=== PATIENT | male | born 1985 | race Caucasian/White ===

== ENCOUNTER 2016-09-25 22:31 | Emergency (ER) | payer SELFPAY ==
[~2016-09-25] VITALS: Ht 182.9 cm; Wt 59.1 kg
[~2016-09-25 22:31] MED LIST: ADDERALL XR30 MG PO; ATIVAN 1MG T1 MG/TAB PO; AURALGAN EAR DR15 ML OT; BACTRIM DS 8001 TAB PO; CARAFATE 1GM1 G PO; CATAPRES0.2 MG PO; CEPHALEXIN500 M1 PO; CHANTIX1 TAB PO; CIPRO 500MG TA500 MG PO; CLEOCIN HC150 MG/CAP PO; CLEOCIN HCL300 MG PO; CLINDAMYCIN150 MG PO; CLONAZEPAM1 MG PO; FLEXERIL 1010 MG/TAB PO; FLOMAX 0.40.4 MG/CAP PO; FLOMAX0.4 MG PO; IBU-8800 MG PO; KAPIDEX60 MG PO; KLONOPIN 1MG1 M1 PO; KLONOPIN 1MG1 MG PO; LIDODERM PATCH TP; LIORESAL 1010 MG/TAB PO; LORTAB 5/500 501 TAB PO; METFORMIN500 MG PO; MOTRIN 200200 MG/TAB PO; NAPROSYN500 MG PO; NORCO 325 MG-51 TAB PO; NORCO 325 MG-7.1 TAB PO; PAXIL30 M1 PO; PERCOCET 325 MG1 TA2 PO; PERCOCET 325 MG1 TAB PO; PHENERGAN 25 TA25 MG PO; PREDNISONE10 MG PO; PRILOSEC 20MG20 MG PO; PROTONIX 40MG T40 MG PO; RELAFEN 50500 MG/TAB PO; ROXICODONE 55 MG/TAB PO; SUBUTEX8 MG SL; TRAZODONE150 MG PO; TYLENOL EXTRA500 M1 PO; VALIUM 5MG T5 MG/TAB PO; VICODIN 5/5001 UDTAB PO; XANAX 0.5MG0.5 MG PO; XANAX0.5 MG PO; ZITHROMAX 250M250 MG; ZITHROMAX 250M250 MG PO; ZITHROMAX Z PA250 MG PO; ZOFRAN 4MG T4 MG/TAB PO; ZOFRAN4 M1 PO; ZOFRAN4 MG PO; ZOFRAN8 MG PO; ZYPREXA10 MG PO; [UNRECOGNIZED DRUG - OTHER]; lortab PO
[2016-09-25 22:34] VITALS: TEMP 97.4
[2016-09-25 23:08] LABS: BASO # 0.1 (0.0-0.2); BASO % 0.9 % (0.0-2.0); EOS # 0.1 (0.0-0.7); EOS % 1.8 % (0-4.0); GRAN # 3.9 (1.4-6.5); GRAN % 57.1 % (42.2-75.2); HEMATOCRIT 45.3 % (42.0-52.0); HEMOGLOBIN 15.6 g/dl (13.5-18.0); LYMPH # 2.2 (1.2-3.4); MEAN CELL VOLUME 94 fl (80.0-100.0); MEAN CORPUSCULAR HEMOGLOBIN 32 pg (27.0-31.0); MEAN CORPUSCULAR HGB CONC 34 g/dl (33.0-37.0); MEAN PLATELET VOLUME 9.6 fl (7.4-10.4); MONO # 0.6 (0.1-0.6); MONO % 8.1 % (1.7-9.3); PLATELET COUNT 302 K/mm3 (130-400); RED BLOOD COUNT 4.81 M/mm3 (4.20-5.60); REDCELL DISTRIBUTION WIDTH-CV 12.1 % (11.5-14.5); WHITE BLOOD COUNT 6.8 K/mm3 (4.8-10.8)
[2016-09-25 23:19] LABS: ADJUSTED CALCIUM 9.1 mg/dL (8.4-10.2); ALANINE AMINOTRANSFERASE 22 U/L (21-72); ALBUMIN 4.2 gm/dL (3.5-5.0); ALKALINE PHOSPHATASE 74 U/L (50-136); ANION GAP 12 mmol/L (7-16); BILIRUBIN,TOTAL 0.7 mg/dL (0.0-1.0); BLOOD UREA NITROGEN 5 mg/dL (9-20); CALCIUM 9.3 mg/dL (8.4-10.2); CARBON DIOXIDE 29 mmol/L (22-30); CHLORIDE 100 mmol/L (98-107); CREATININE, serum 0.74 mg/dL (0.66-1.25); GLUCOSE 93 mg/dL (74-106); LIPASE 91 U/L (23-300); POTASSIUM 3.7 mmol/L (3.4-5.0); SODIUM 142 mmol/L (137-145); TOTAL PROTEIN 7.2 gm/dL (6.4-8.2)
[2016-09-25 23:21] LABS: C-REACTIVE PROTEIN < 0.5 mg/dL (0.0-0.9)
[2016-09-25 23:31] LABS: PH 7 (5-8); SQUAMOUS EPITHELIAL None Seen /hpf; URINE APPEARANCE Cloudy; URINE BACTERIA None Seen /hpf; URINE BILIRUBIN Negative (NEGATIVE); URINE BLOOD Negative (NEGATIVE); URINE COLOR Yellow; URINE GLUCOSE Negative (NEGATIVE); URINE KETONE Negative (NEGATIVE); URINE UROBILINOGEN Negative (NEGATIVE); URINE WBC 0-2 /hpf
[2016-09-25 23:38] LABS: AMPHETAMINE URINE POSITIVE; BARBITURATES URINE NEGATIVE; BENZODIAZEPINES URINE POSITIVE; BUPRENORPHINE URINE NEGATIVE; METHADONE URINE NEGATIVE; OPIATES URINE NEGATIVE; OXYCODONE URINE NEGATIVE; PHENCYCLIDINE URINE NEGATIVE; PROPOXYPHENE URINE NEGATIVE; THC CANNABINOIDS URINE NEGATIVE
[2016-09-26] MEDS ORDERED: PHENERGAN 25 TA25 MG PO (00:29)
[2016-09-26] MEDS ORDERED: FLOMAX 0.40.4 MG/CAP PO (00:29)
[2016-09-26] MEDS ORDERED: NORCO 325 MG-51 TAB PO (00:29)
[2016-09-26 01:13] VITALS: BP 118/72; PULSE 80
== END 2016-09-26 01:15 | disposition home or self-care (01) ==
LOC: COL.ER 22:31
PROVIDERS: Physician Assistant
DX: N13.30 Unspecified hydronephrosis (principal); R31.9 Hematuria, unspecified; N20.0 Calculus of kidney
CPT/HCPCS: J1170; J1885; J2060; J2550; J7030

== ENCOUNTER 2016-10-11 04:18 | Emergency (ER) | payer SELFPAY ==
[~2016-10-11] VITALS: Ht 182.9 cm; Wt 65.9 kg
[2016-10-11 04:19] VITALS: BP 97/66; TEMP 97.7
[2016-10-11] MEDS ORDERED: MOTRIN 200200 MG/TAB PO (04:23)
[2016-10-11] MEDS ORDERED: NORCO 325 MG-51 TAB PO (05:19)
[2016-10-11] MEDS ORDERED: PHENERGAN 25 TA25 MG PO (05:19)
[2016-10-11 05:21] LABS: BASO % 0.7 % (0.0-2.0); EOS # 0.1 (0.0-0.7); EOS % 2.1 % (0-4.0); GRAN # 3.6 (1.4-6.5); HEMOGLOBIN 14.5 g/dl (13.5-18.0); LYMPH # 1.8 (1.2-3.4); LYMPH % 29.1 % (20.0-51.0); MEAN CELL VOLUME 94 fl (80.0-100.0); MEAN CORPUSCULAR HEMOGLOBIN 33 pg (27.0-31.0); MEAN CORPUSCULAR HGB CONC 35 g/dl (33.0-37.0); MEAN PLATELET VOLUME 9.3 fl (7.4-10.4); MONO # 0.5 (0.1-0.6); MONO % 8.9 % (1.7-9.3); PLATELET COUNT 278 K/mm3 (130-400); RED BLOOD COUNT 4.45 M/mm3 (4.20-5.60); REDCELL DISTRIBUTION WIDTH-CV 12.1 % (11.5-14.5); WHITE BLOOD COUNT 6.1 K/mm3 (4.8-10.8)
[2016-10-11 05:31] LABS: CALCIUM 8.8 mg/dL (8.4-10.2); CREATININE, serum 0.66 mg/dL (0.66-1.25); POTASSIUM 4.2 mmol/L (3.4-5.0)
[2016-10-11 05:31] LABS: PH 7 (5-8); SQUAMOUS EPITHELIAL 0-2 /hpf; URINE APPEARANCE Hazy; URINE BACTERIA Rare /hpf; URINE BILIRUBIN Negative (NEGATIVE); URINE BLOOD Negative (NEGATIVE); URINE COLOR Yellow; URINE GLUCOSE Negative (NEGATIVE); URINE KETONE Negative (NEGATIVE); URINE UROBILINOGEN Negative (NEGATIVE); URINE WBC 0-2 /hpf
[2016-10-11 05:49] VITALS: PULSE 90
[2016-10-12] MEDS ORDERED: FLOMAX 0.40.4 MG/CAP PO (23:53)
== END 2016-10-11 05:50 | disposition home or self-care (01) ==
LOC: COL.ER 04:18
PROVIDERS: Emergency Medicine
DX: R10.31 Right lower quadrant pain (principal); Z87.442 Personal history of urinary calculi
CPT/HCPCS: J1170; J1885; J2405; J7030

== ENCOUNTER 2016-10-12 23:11 | Emergency (ER) | payer SELFPAY ==
[~2016-10-12] VITALS: Ht 182.9 cm; Wt 65.9 kg
[2016-10-12 23:15] VITALS: BP 113/69; TEMP 97.8
[2016-10-12 23:44] LABS: PH 7 (5-8); SQUAMOUS EPITHELIAL None Seen /hpf; URINE APPEARANCE Clear; URINE BACTERIA None Seen /hpf; URINE BILIRUBIN Negative (NEGATIVE); URINE BLOOD Negative (NEGATIVE); URINE COLOR Yellow; URINE GLUCOSE Negative (NEGATIVE); URINE KETONE Negative (NEGATIVE); URINE RBC 0-2 /hpf; URINE UROBILINOGEN Negative (NEGATIVE); URINE WBC 0-2 /hpf
[2016-10-12] MEDS ORDERED: FLOMAX 0.40.4 MG/CAP PO (23:53)
[2016-10-13 00:18] VITALS: PULSE 78
== END 2016-10-13 00:19 | disposition home or self-care (01) ==
LOC: COL.ER 23:11
PROVIDERS: Nurse Practitioner
DX: R10.32 Left lower quadrant pain (principal); R10.31 Right lower quadrant pain; Z87.442 Personal history of urinary calculi
CPT/HCPCS: J1170; J1885; J2550

== ENCOUNTER → 2016-11-25 | Outpatient (CLI) | payer SELFPAY ==
[~2016-11-25] MED LIST changes: +ADDERALL30 MG PO; +ATIVAN 0.50.5 MG/TAB PO
== END ==
LOC: BHSO 09:35
DX: F90.0 Attention-deficit hyperactivity disorder, predominantly inattentive type (principal)

== ENCOUNTER 2016-11-27 20:36 | Emergency (ER) | payer SELFPAY ==
[~2016-11-27] VITALS: Ht 182.9 cm; Wt 68.2 kg
[~2016-11-27 20:36] MED LIST changes: -ADDERALL30 MG PO; -ATIVAN 0.50.5 MG/TAB PO
[2016-11-27 20:40] VITALS: TEMP 98.2
[2016-11-27] MEDS ORDERED: ZITHROMAX Z PA250 MG PO (22:50)
[2016-11-27 23:14] VITALS: BP 104/7; PULSE 88
== END 2016-11-27 23:15 | disposition home or self-care (01) ==
LOC: COL.ER 20:36
DX: J20.9 Acute bronchitis, unspecified (principal); F41.9 Anxiety disorder, unspecified; F17.210 Nicotine dependence, cigarettes, uncomplicated; R59.0 Localized enlarged lymph nodes
CPT/HCPCS: J1100; J7030

== ENCOUNTER 2016-12-14 23:15 | Emergency (ER) | payer SELFPAY ==
[~2016-12-14] VITALS: Ht 182.9 cm; Wt 68.2 kg
[2016-12-14 23:22] VITALS: BP 118/64; TEMP 99.1
[2016-12-15 00:20] LABS: BASO # 0.1 (0.0-0.2); BASO % 0.7 % (0.0-2.0); EOS # 0.2 (0.0-0.7); EOS % 1.4 % (0-4.0); GRAN # 8.9 (1.4-6.5); GRAN % 75.7 % (42.2-75.2); HEMATOCRIT 42.5 % (42.0-52.0); HEMOGLOBIN 14.7 g/dl (13.5-18.0); LYMPH # 1.7 (1.2-3.4); LYMPH % 14.8 % (20.0-51.0); MEAN CELL VOLUME 93 fl (80.0-100.0); MEAN CORPUSCULAR HEMOGLOBIN 32 pg (27.0-31.0); MEAN CORPUSCULAR HGB CONC 35 g/dl (33.0-37.0); MEAN PLATELET VOLUME 8.9 fl (7.4-10.4); MONO # 0.8 (0.1-0.6); MONO % 6.9 % (1.7-9.3); PLATELET COUNT 483 K/mm3 (130-400); RED BLOOD COUNT 4.58 M/mm3 (4.20-5.60); REDCELL DISTRIBUTION WIDTH-CV 12.4 % (11.5-14.5); WHITE BLOOD COUNT 11.8 K/mm3 (4.8-10.8)
[2016-12-15 00:36] LABS: ADJUSTED CALCIUM 9.2 mg/dL (8.4-10.2); ALBUMIN 4.2 gm/dL (3.5-5.0); BILIRUBIN,TOTAL 0.5 mg/dL (0.0-1.0); CALCIUM 9.4 mg/dL (8.4-10.2); CREATININE, serum 0.83 mg/dL (0.66-1.25); POTASSIUM 3.7 mmol/L (3.4-5.0); TOTAL PROTEIN 7.4 gm/dL (6.4-8.2)
[2016-12-15 01:17] LABS: PH 8 (5-8); URINE APPEARANCE Cloudy; URINE BILIRUBIN Negative (NEGATIVE); URINE BLOOD Negative (NEGATIVE); URINE COLOR Yellow; URINE GLUCOSE Negative (NEGATIVE); URINE KETONE Negative (NEGATIVE); URINE UROBILINOGEN Negative (NEGATIVE)
[2016-12-15 01:23] LABS: SQUAMOUS EPITHELIAL 0-2 /hpf; URINE RBC 0-2 /hpf; URINE WBC 0-2 /hpf
[2016-12-15 03:05] VITALS: PULSE 85
== END 2016-12-15 03:07 | disposition home or self-care (01) ==
LOC: COL.ER 23:15
PROVIDERS: Emergency Medicine
DX: R10.31 Right lower quadrant pain (principal); R11.2 Nausea with vomiting, unspecified; Z87.442 Personal history of urinary calculi
CPT/HCPCS: J1885; J2405; J3010; J7030; Q9967

== ENCOUNTER 2017-01-18 13:10 | Emergency (ER) | payer SELFPAY ==
[~2017-01-18] VITALS: Ht 182.9 cm; Wt 68.2 kg
[2017-01-18 13:12] VITALS: BP 111/70; TEMP 98
[2017-01-18] MEDS ORDERED: ADDERALL30 MG PO (13:14)
[2017-01-18] MEDS ORDERED: KLONOPIN 1MG1 MG PO (13:31)
[2017-01-18 13:37] VITALS: PULSE 86
== END 2017-01-18 13:38 | disposition home or self-care (01) ==
LOC: COL.ER 13:10
DX: Z76.0 Encounter for issue of repeat prescription (principal); F41.9 Anxiety disorder, unspecified

== ENCOUNTER → 2017-02-03 | Outpatient (REF) ==
[~2017-02-03] MED LIST changes: +ADDERALL30 MG PO; +ATIVAN 0.50.5 MG/TAB PO
== END ==
LOC: ZLAB.WCH 08:53
DX: Z01.89 Encounter for other specified special examinations (principal)

== ENCOUNTER 2017-02-04 22:05 | Emergency (ER) | payer SELFPAY ==
[~2017-02-04] VITALS: Ht 182.9 cm; Wt 68.2 kg
[~2017-02-04 22:05] MED LIST changes: -ATIVAN 0.50.5 MG/TAB PO
[2017-02-04 22:07] VITALS: BP 112/67; TEMP 98.1
[2017-02-04] MEDS ORDERED: ATIVAN 0.50.5 MG/TAB PO (22:11)
[2017-02-04 23:02] VITALS: PULSE 100
== END 2017-02-04 22:59 | disposition home or self-care (01) ==
LOC: COL.ER 22:05
DX: G89.29 Other chronic pain (principal); F32.9 Major depressive disorder, single episode, unspecified; F43.10 Post-traumatic stress disorder, unspecified; F17.210 Nicotine dependence, cigarettes, uncomplicated; Z71.1 Person with feared health complaint in whom no diagnosis is made

== ENCOUNTER 2017-06-19 23:21 | Emergency (ER) | payer SELFPAY ==
[~2017-06-19] VITALS: Ht 182.9 cm; Wt 72.7 kg
[~2017-06-19 23:21] MED LIST changes: +ATIVAN 0.50.5 MG/TAB PO
[2017-06-19 23:26] VITALS: BP 111/75; PULSE 86; TEMP 97.8
[2017-06-19] MEDS ORDERED: ATARAX 25MG25 MG/TAB PO (23:54)
== END 2017-06-20 00:15 | disposition home or self-care (01) ==
LOC: COL.ER 23:21
DX: Z76.0 Encounter for issue of repeat prescription (principal); F41.9 Anxiety disorder, unspecified; F17.210 Nicotine dependence, cigarettes, uncomplicated

== ENCOUNTER → 2017-07-01 | Outpatient (CLI) | payer SELFPAY ==
[~2017-07-01] MED LIST changes: +ATARAX 25MG25 MG/TAB PO
== END ==
LOC: BHSO 13:26
DX: F41.1 Generalized anxiety disorder (principal)

== ENCOUNTER → 2018-01-01 | Outpatient (CLI) | payer SELFPAY | LOC: BHSO 09:20 | DX: F90.0 Attention-deficit hyperactivity disorder, predominantly inattentive type (principal) | CPT/HCPCS: G0463 ==

== ENCOUNTER → 2018-03-21 | Emergency (ER) | payer SELFPAY ==
[~2018-03-21] VITALS: Ht 185.4 cm; Wt 68.2 kg
[2018-03-21 18:57] VITALS: BP 116/72; TEMP 98
[2018-03-21 19:55] VITALS: PULSE 87
== END ==
LOC: COL.ER 18:54
DX: K02.9 Dental caries, unspecified (principal); K04.7 Periapical abscess without sinus; F41.9 Anxiety disorder, unspecified; F17.210 Nicotine dependence, cigarettes, uncomplicated

== ENCOUNTER → 2018-07-28 | Outpatient (CLI) | payer SELFPAY | LOC: BHSO 09:41 | DX: F41.1 Generalized anxiety disorder (principal) | CPT/HCPCS: G0463 ==

== ENCOUNTER 2019-02-11 23:27 | Emergency (ER) | payer MEDICAID ==
[~2019-02-11] VITALS: Ht 182.9 cm; Wt 68.2 kg
[2019-02-11 23:34] VITALS: TEMP 97
[2019-02-11] MEDS ORDERED: FLOMAX 0.40.4 MG/CAP PO (23:53)
[2019-02-12 00:10] LABS: BASO # 0.1 (0.0-0.2); BASO % 1.2 % (0.0-2.0); EOS # 0.2 (0.0-0.7); EOS % 4.9 % (0-4.0); GRAN # 2.4 (1.4-6.5); GRAN % 57.8 % (42.2-75.2); HEMATOCRIT 44.1 % (42.0-52.0); HEMOGLOBIN 15.1 g/dl (13.5-18.0); LYMPH % 25.2 % (20.0-51.0); MEAN CELL VOLUME 94 fl (80.0-100.0); MEAN CORPUSCULAR HEMOGLOBIN 32 pg (27.0-31.0); MEAN CORPUSCULAR HGB CONC 34 g/dl (33.0-37.0); MEAN PLATELET VOLUME 9.2 fl (7.4-10.4); MONO # 0.4 (0.1-0.6); MONO % 10.7 % (1.7-9.3); PLATELET COUNT 272 K/mm3 (130-400); REDCELL DISTRIBUTION WIDTH-CV 11.8 % (11.5-14.5)
[2019-02-12 00:16] LABS: CALCIUM 9.1 mg/dL (8.4-10.2); CREATININE, serum 0.67 (0.66-1.25); POTASSIUM 4.3 mmol/L (3.4-5.0)
[2019-02-12 01:09] LABS: COLLECTION METHOD CLEAN CATCH
[2019-02-12 01:14] LABS: PH 9 (5-8); SQUAMOUS EPITHELIAL None Seen /hpf; URINE APPEARANCE Clear; URINE BACTERIA None Seen /hpf; URINE BILIRUBIN Negative (NEGATIVE); URINE BLOOD Negative (NEGATIVE); URINE COLOR Straw; URINE GLUCOSE Negative (NEGATIVE); URINE KETONE Negative (NEGATIVE); URINE LEUKOCYTE ESTERASE Negative (NEGATIVE); URINE NITRATE Negative (NEGATIVE); URINE PROTEIN(semi-quant) Negative (NEGATIVE); URINE RBC 0-2 /hpf; URINE UROBILINOGEN Negative (NEGATIVE)
[2019-02-12] MEDS ORDERED: PERCOCET 325 MG1 TA2 PO (01:39)
[2019-02-12] MEDS ORDERED: ZOFRAN 4MG T4 MG/TAB PO (01:39)
[2019-02-12] MEDS ORDERED: PHENERGAN12.5 MG/SU RC (01:41)
[2019-02-12 02:05] VITALS: BP 144/85; PULSE 80
== END 2019-02-12 02:05 | disposition home or self-care (01) ==
LOC: COL.ER 23:27
PROVIDERS: Emergency Medicine
DX: N20.2 Calculus of kidney with calculus of ureter (principal); F90.9 Attention-deficit hyperactivity disorder, unspecified type; F20.9 Schizophrenia, unspecified; F17.210 Nicotine dependence, cigarettes, uncomplicated; Z87.442 Personal history of urinary calculi
CPT/HCPCS: J1885; J2270; J2405; J7030

== ENCOUNTER → 2019-02-18 | Outpatient (CLI) | payer MEDICAID ==
[~2019-02-18] MED LIST changes: +PHENERGAN12.5 MG/SU RC
== END ==
LOC: BHSO 11:23
DX: F90.0 Attention-deficit hyperactivity disorder, predominantly inattentive type (principal)
CPT/HCPCS: G0463

== ENCOUNTER 2019-05-14 10:22 | Emergency (ER) | payer MEDICAID ==
[~2019-05-14] VITALS: Ht 182.9 cm; Wt 65.9 kg
[2019-05-14 10:40] VITALS: TEMP 97.3
[2019-05-14 11:56] LABS: BASO # 0.1 (0.0-0.2); BASO % 0.9 % (0.0-2.0); EOS # 0.3 (0.0-0.7); GRAN % 60.1 % (42.2-75.2); HEMATOCRIT 42.3 % (42.0-52.0); HEMOGLOBIN 14.6 g/dl (13.5-18.0); LYMPH # 1.7 (1.2-3.4); LYMPH % 24.6 % (20.0-51.0); MEAN CELL VOLUME 93 fl (80.0-100.0); MEAN CORPUSCULAR HEMOGLOBIN 32 pg (27.0-31.0); MEAN CORPUSCULAR HGB CONC 35 g/dl (33.0-37.0); MEAN PLATELET VOLUME 9.6 fl (7.4-10.4); MONO # 0.7 (0.1-0.6); MONO % 10.3 % (1.7-9.3); PLATELET COUNT 289 K/mm3 (130-400); RED BLOOD COUNT 4.53 M/mm3 (4.20-5.60); REDCELL DISTRIBUTION WIDTH-CV 12.1 % (11.5-14.5)
[2019-05-14 12:08] LABS: ALANINE AMINOTRANSFERASE 23 U/L (21-72); ALBUMIN 4.2 gm/dL (3.5-5.0); ALKALINE PHOSPHATASE 67 U/L (50-136); ANION GAP 7 mmol/L (7-16); AST,SGOT 41 U/L (15-37); BILIRUBIN,TOTAL 0.3 mg/dL (0.0-1.0); BLOOD UREA NITROGEN 16 mg/dL (9-20); C-REACTIVE PROTEIN < 0.5 mg/dL (0.0-0.9); CALCIUM 9.2 mg/dL (8.4-10.2); CARBON DIOXIDE 31 mmol/L (22-30); CHLORIDE 102 mmol/L (98-107); CREATININE, serum 0.91 (0.66-1.25); GLUCOSE 101 mg/dL (74-106); LIPASE 79 U/L (23-300); POTASSIUM 3.6 mmol/L (3.4-5.0); SODIUM 140 mmol/L (137-145); TOTAL PROTEIN 6.8 gm/dL (6.4-8.2)
[2019-05-14] MEDS ORDERED: NORCO 325 MG-51 TAB PO (14:07)
[2019-05-14 14:23] VITALS: BP 122/79; PULSE 72
== END 2019-05-14 14:24 | disposition home or self-care (01) ==
LOC: COL.ER 10:22
PROVIDERS: Family Medicine
DX: N13.2 Hydronephrosis with renal and ureteral calculous obstruction (principal); Z87.442 Personal history of urinary calculi
CPT/HCPCS: J1170; J1885; J2405; J7030; Q9967

== ENCOUNTER 2019-12-04 13:04 | Emergency (ER) | payer MEDICAID ==
[~2019-12-04] VITALS: Ht 182.9 cm; Wt 68.2 kg
[2019-12-04 13:24] VITALS: TEMP 98
[2019-12-04 13:38] LABS: COLLECTION METHOD CLEAN CATCH
[2019-12-04 13:43] LABS: BASO # 0.1 (0.0-0.2); BASO % 1.3 % (0.0-2.0); EOS # 0.3 (0.0-0.7); EOS % 4.8 % (0-4.0); GRAN # 2.6 (1.4-6.5); GRAN % 48.3 % (42.2-75.2); HEMATOCRIT 45.4 % (42.0-52.0); HEMOGLOBIN 15.4 g/dl (13.5-18.0); LYMPH # 1.9 (1.2-3.4); LYMPH % 34.8 % (20.0-51.0); MEAN CELL VOLUME 94 fl (80.0-100.0); MEAN CORPUSCULAR HEMOGLOBIN 32 pg (27.0-31.0); MEAN CORPUSCULAR HGB CONC 34 g/dl (33.0-37.0); MONO # 0.6 (0.1-0.6); MONO % 10.4 % (1.7-9.3); PLATELET COUNT 288 K/mm3 (130-400); RED BLOOD COUNT 4.82 M/mm3 (4.20-5.60); REDCELL DISTRIBUTION WIDTH-CV 12.4 % (11.5-14.5)
[2019-12-04 13:56] LABS: ALANINE AMINOTRANSFERASE 26 U/L (4-49); ALBUMIN 4.1 gm/dL (3.5-5.0); ALKALINE PHOSPHATASE 75 U/L (50-136); ANION GAP 6 mmol/L (7-16); AST,SGOT 26 U/L (15-37); BILIRUBIN,TOTAL 0.3 mg/dL (0.0-1.0); BLOOD UREA NITROGEN 6 mg/dL (9-20); CARBON DIOXIDE 32 mmol/L (22-30); CHLORIDE 101 mmol/L (98-107); CREATININE, serum 0.63 (0.66-1.25); GLUCOSE 82 mg/dL (74-106); LIPASE 52 U/L (23-300); POTASSIUM 3.9 mmol/L (3.4-5.0); SODIUM 138 mmol/L (137-145); TOTAL PROTEIN 7.1 gm/dL (6.4-8.2)
[2019-12-04 13:58] LABS: C-REACTIVE PROTEIN < 0.5 mg/dL (0.0-0.9)
[2019-12-04 14:08] LABS: PH 6 (5-8); SQUAMOUS EPITHELIAL None Seen /hpf; URINE APPEARANCE Clear; URINE BACTERIA None Seen /hpf; URINE BILIRUBIN Negative (NEGATIVE); URINE BLOOD 1+ (NEGATIVE); URINE COLOR Yellow; URINE GLUCOSE Negative (NEGATIVE); URINE KETONE Negative (NEGATIVE); URINE LEUKOCYTE ESTERASE Negative (NEGATIVE); URINE NITRATE Negative (NEGATIVE); URINE PROTEIN(semi-quant) Negative (NEGATIVE); URINE UROBILINOGEN Negative (NEGATIVE)
[2019-12-04 15:26] VITALS: BP 111/72; PULSE 81
[2019-12-04] MEDS ORDERED: ZOFRAN 4MG T4 MG/TAB PO (16:01)
[2019-12-04] MEDS ORDERED: PERCOCET 325 MG1 TA2 PO (16:01)
== END 2019-12-04 16:21 | disposition home or self-care (01) ==
LOC: COL.ER 13:04
PROVIDERS: Emergency Medicine
DX: N20.2 Calculus of kidney with calculus of ureter (principal); F17.210 Nicotine dependence, cigarettes, uncomplicated
CPT/HCPCS: J1170; J1885; J2405; J7030; Q9967

== ENCOUNTER 2020-04-24 20:09 | Emergency (ER) | payer MEDICAID ==
[~2020-04-24] VITALS: Ht 182.9 cm; Wt 68.2 kg
[2020-04-24 20:21] VITALS: BP 123/76; TEMP 98.3
[2020-04-24 21:49] LABS: COLLECTION METHOD CLEAN CATCH
[2020-04-24 21:57] LABS: PH 7 (5-8); SQUAMOUS EPITHELIAL None Seen /hpf; URINE APPEARANCE Clear; URINE BACTERIA None Seen /hpf; URINE BILIRUBIN Negative (NEGATIVE); URINE BLOOD Negative (NEGATIVE); URINE COLOR Colorless; URINE GLUCOSE Negative (NEGATIVE); URINE KETONE Negative (NEGATIVE); URINE LEUKOCYTE ESTERASE Negative (NEGATIVE); URINE NITRATE Negative (NEGATIVE); URINE PROTEIN(semi-quant) Negative (NEGATIVE); URINE RBC None Seen /hpf; URINE UROBILINOGEN Negative (NEGATIVE)
[2020-04-24 22:14] LABS: BASO # 0.1 (0.0-0.2); EOS # 0.2 (0.0-0.7); EOS % 4.6 % (0-4.0); GRAN # 3.2 (1.4-6.5); GRAN % 63.6 % (42.2-75.2); HEMATOCRIT 45.2 % (42.0-52.0); HEMOGLOBIN 15.3 g/dl (13.5-18.0); LYMPH # 1.1 (1.2-3.4); LYMPH % 21.2 % (20.0-51.0); MEAN CELL VOLUME 94 fl (80.0-100.0); MEAN CORPUSCULAR HEMOGLOBIN 32 pg (27.0-31.0); MEAN CORPUSCULAR HGB CONC 34 g/dl (33.0-37.0); MEAN PLATELET VOLUME 9.4 fl (7.4-10.4); MONO # 0.5 (0.1-0.6); MONO % 9.2 % (1.7-9.3); PLATELET COUNT 317 K/mm3 (130-400); RED BLOOD COUNT 4.83 M/mm3 (4.20-5.60); REDCELL DISTRIBUTION WIDTH-CV 12.3 % (11.5-14.5)
[2020-04-24 22:24] LABS: ALBUMIN 4.1 gm/dL (3.5-5.0); BILIRUBIN,TOTAL 0.4 mg/dL (0.0-1.0); CREATININE, serum 0.78 (0.66-1.25); POTASSIUM 4.5 mmol/L (3.4-5.0); TOTAL PROTEIN 6.8 gm/dL (6.4-8.2)
[2020-04-24] MEDS ORDERED: FLOMAX 0.40.4 MG/CAP PO (22:48)
[2020-04-24] MEDS ORDERED: NAPROXEN 3375 MG/TAB PO (22:48)
[2020-04-24] MEDS ORDERED: ZOFRAN 4MG T4 MG/TAB PO (22:48)
[2020-04-24] MEDS ORDERED: NORCO 325 MG-51 TAB PO (22:48)
[2020-04-24 23:00] VITALS: PULSE 89
== END 2020-04-24 23:00 | disposition home or self-care (01) ==
LOC: COL.ER 20:09
PROVIDERS: Emergency Medicine
DX: R10.9 Unspecified abdominal pain (principal); F90.9 Attention-deficit hyperactivity disorder, unspecified type; F41.9 Anxiety disorder, unspecified; F17.210 Nicotine dependence, cigarettes, uncomplicated; Z87.442 Personal history of urinary calculi; Z88.0 Allergy status to penicillin
CPT/HCPCS: J1885; J2270; J2405; J7030

== ENCOUNTER 2020-07-21 06:20 | Emergency (ER) | payer MEDICAID ==
[~2020-07-21] VITALS: Ht 182.9 cm; Wt 70.5 kg
[~2020-07-21 06:20] MED LIST changes: +NAPROXEN 3375 MG/TAB PO
[2020-07-21 06:27] VITALS: BP 129/87; TEMP 97.9
[2020-07-21] MEDS ORDERED: KLONOPIN WAFERS1 MG PO (06:45)
[2020-07-21] MEDS ORDERED: CLEOCIN HCL300 MG PO (06:45)
[2020-07-21 06:54] VITALS: PULSE 82
== END 2020-07-21 06:54 | disposition home or self-care (01) ==
LOC: COL.ER 06:20
DX: Z76.0 Encounter for issue of repeat prescription (principal); F41.9 Anxiety disorder, unspecified; F17.210 Nicotine dependence, cigarettes, uncomplicated; Z87.442 Personal history of urinary calculi; Z88.0 Allergy status to penicillin

== ENCOUNTER 2021-05-11 14:23 | Emergency (ER) | payer MEDICAID ==
[~2021-05-11] VITALS: Ht 185.4 cm; Wt 72.7 kg
[~2021-05-11 14:23] MED LIST changes: +KLONOPIN WAFERS1 MG PO
[2021-05-11 14:49] VITALS: TEMP 98
[2021-05-11 15:13] LABS: COLLECTION METHOD CLEAN CATCH
[2021-05-11 15:34] LABS: BASO # 0.1 K/mm3 (0.0-0.2); BASO % 0.7 % (0.0-2.0); EOS # 0.2 K/mm3 (0.0-0.7); EOS % 3.3 % (0-4.0); GRAN # 4.9 K/mm3 (1.4-6.5); GRAN % 67.9 % (42.2-75.2); HEMATOCRIT 43.1 % (42.0-52.0); HEMOGLOBIN 14.9 g/dl (13.5-18.0); LYMPH # 1.2 K/mm3 (1.2-3.4); LYMPH % 17.2 % (20.0-51.0); MEAN CELL VOLUME 92 fl (80.0-100.0); MEAN CORPUSCULAR HEMOGLOBIN 32 pg (27.0-31.0); MEAN CORPUSCULAR HGB CONC 35 g/dl (33.0-37.0); MEAN PLATELET VOLUME 9.2 fl (7.4-10.4); MONO # 0.8 K/mm3 (0.1-0.6); MONO % 10.6 % (1.7-9.3); PLATELET COUNT 315 K/mm3 (130-400); RED BLOOD COUNT 4.69 M/mm3 (4.20-5.60); REDCELL DISTRIBUTION WIDTH-CV 12.7 % (11.5-14.5)
[2021-05-11 15:36] LABS: MUCOUS Present /lpf; PH 6 (5-8); SQUAMOUS EPITHELIAL None Seen /hpf; URINE APPEARANCE Cloudy; URINE BACTERIA None Seen /hpf; URINE BILIRUBIN Negative (NEGATIVE); URINE BLOOD 3+ (NEGATIVE); URINE COLOR Yellow; URINE GLUCOSE Negative (NEGATIVE); URINE KETONE Negative (NEGATIVE); URINE LEUKOCYTE ESTERASE Negative (NEGATIVE); URINE NITRATE Negative (NEGATIVE); URINE PROTEIN(semi-quant) 1+ (NEGATIVE); URINE RBC >50 /hpf; URINE UROBILINOGEN Negative (NEGATIVE)
[2021-05-11 15:49] LABS: ALBUMIN 3.9 gm/dL (3.5-5.0); BILIRUBIN,TOTAL 0.2 mg/dL (0.2-1.2); CALCIUM 9.9 mg/dL (8.4-10.2); CREATININE, serum 0.92 mg/dL (0.72-1.25); POTASSIUM 3.8 mmol/L (3.5-4.5); TOTAL PROTEIN 6.6 gm/dL (6.2-8.1)
[2021-05-11] MEDS ORDERED: FLOMAX 0.40.4 MG/CAP PO (17:11)
[2021-05-11] MEDS ORDERED: PERCOCET 325 MG1 TA2 PO (17:11)
[2021-05-11] MEDS ORDERED: ZOFRAN ODT4 MG PO (17:11)
[2021-05-11 17:29] VITALS: BP 127/80; PULSE 84
== END 2021-05-11 17:30 | disposition home or self-care (01) ==
LOC: COL.ER 14:23
PROVIDERS: Emergency Medicine; Personal Emergency Response Attendant
DX: N13.2 Hydronephrosis with renal and ureteral calculous obstruction (principal); K12.2 Cellulitis and abscess of mouth; F41.9 Anxiety disorder, unspecified; Z79.899 Other long term (current) drug therapy
CPT/HCPCS: J1885; J2270; J2405; J7030

== ENCOUNTER 2022-02-11 05:23 | Emergency (ER) | payer SELFPAY ==
[~2022-02-11] VITALS: Ht 185.4 cm; Wt 70.5 kg
[~2022-02-11 05:23] MED LIST changes: +ZOFRAN ODT4 MG PO
[2022-02-11 05:27] VITALS: TEMP 98.2
[2022-02-11 05:47] LABS: BASO # 0.1 K/mm3 (0.0-0.2); BASO % 1.1 % (0.0-2.0); EOS # 0.3 K/mm3 (0.0-0.7); EOS % 4.4 % (0.0-4.0); GRAN # 2.9 K/mm3 (1.4-6.5); HEMATOCRIT 41.6 % (42.0-52.0); HEMOGLOBIN 14.1 g/dl (13.5-18.0); LYMPH # 2.4 K/mm3 (1.2-3.4); LYMPH % 37.9 % (20.0-51.0); MEAN CELL VOLUME 94 fl (80.0-100.0); MEAN CORPUSCULAR HEMOGLOBIN 32 pg (27-31); MEAN CORPUSCULAR HGB CONC 34 g/dl (33.0-37.0); MEAN PLATELET VOLUME 9.3 fl (7.4-10.4); MONO # 0.7 K/mm3 (0.1-0.6); MONO % 11.3 % (1.7-9.3); PLATELET COUNT 288 K/mm3 (130-400); RED BLOOD COUNT 4.45 M/mm3 (4.20-5.60); REDCELL DISTRIBUTION WIDTH-CV 12.5 % (11.5-14.5)
[2022-02-11 05:53] VITALS: BP 110/68
[2022-02-11 06:11] LABS: ALBUMIN 3.6 gm/dL (3.5-5.0); BILIRUBIN,TOTAL 0.2 mg/dL (0.2-1.2); C-REACTIVE PROTEIN 0.09 mg/dL (0.00-0.50); CALCIUM 8.6 mg/dL (8.4-10.2); CREATININE, serum 0.84 mg/dL (0.72-1.25); POTASSIUM 3.6 mmol/L (3.5-4.5); TOTAL PROTEIN 6.3 gm/dL (6.2-8.1)
[2022-02-11 06:55] VITALS: PULSE 80
[2022-02-11 08:29] LABS: COLLECTION METHOD CLEAN CATCH
[2022-02-11 08:50] LABS: MUCOUS Present (NOT PRESENT); PH 6 (5-8); SQUAMOUS EPITHELIAL 0-2 /hpf (0-10); URINE APPEARANCE Cloudy (CLEAR/HAZY); URINE BACTERIA None Seen /hpf (NONE SEEN); URINE BLOOD 3+ (NEGATIVE); URINE CALCIUM OXALATE CRYSTAL Present (NOT PRESENT); URINE COLOR Yellow (YELLOW); URINE GLUCOSE Negative (NEGATIVE); URINE KETONE Negative (NEGATIVE); URINE NITRATE Negative (NEGATIVE); URINE PROTEIN(semi-quant) 1+ (NEGATIVE); URINE RBC >50 /hpf (0-2); URINE UROBILINOGEN Negative (NEGATIVE)
== END 2022-02-11 06:55 | disposition home or self-care (01) ==
LOC: COL.ER 05:23
PROVIDERS: Family Medicine
DX: N20.2 Calculus of kidney with calculus of ureter (principal); Z28.310 Unvaccinated for COVID-19
CPT/HCPCS: J1170; J1885; J2405; J7120

== ENCOUNTER 2023-06-27 23:17 | Emergency (ER) | payer SELFPAY ==
[~2023-06-27] VITALS: Ht 188 cm; Wt 81.8 kg
[~2023-06-27 23:17] MED LIST changes: +DOXYCYCLINE HY100 MG PO; +FLAGYL500 MG PO; +ILOTYCIN5 MG/GM OP; +LEVAQUIN 5500 MG/TA1 PO; +TAMIFLU 75MG75 MG PO
[2023-06-28 00:04] LABS: BASO % 0.6 % (0.0-2.0); EOS # 0.2 K/mm3 (0.0-0.7); EOS % 2.4 % (0.0-4.0); GRAN # 4.6 K/mm3 (1.4-6.5); GRAN % 66.6 % (42.2-75.2); HEMATOCRIT 47.3 % (42.0-52.0); LYMPH # 1.4 K/mm3 (1.2-3.4); LYMPH % 20.5 % (20.0-51.0); MEAN CELL VOLUME 90 fl (80.0-100.0); MEAN CORPUSCULAR HEMOGLOBIN 32 pg (27-31); MEAN CORPUSCULAR HGB CONC 36 g/dl (33.0-37.0); MEAN PLATELET VOLUME 8.6 fl (7.4-10.4); MONO # 0.7 K/mm3 (0.1-0.6); MONO % 9.5 % (1.7-9.3); PLATELET COUNT 330 K/mm3 (130-400); RED BLOOD COUNT 5.27 M/mm3 (4.20-5.60); REDCELL DISTRIBUTION WIDTH-CV 12.4 % (11.5-14.5)
[2023-06-28 00:27] LABS: BILIRUBIN,TOTAL 0.4 mg/dL (0.2-1.2); CALCIUM 9.4 mg/dL (8.4-10.2); CREATININE, serum 0.84 mg/dL (0.72-1.25); POTASSIUM 3.9 mmol/L (3.5-4.5); TOTAL PROTEIN 7.4 gm/dL (6.2-8.1)
[2023-06-28 01:17] VITALS: BP 111/76; PULSE 77; TEMP 98.1
== END 2023-06-28 01:17 | disposition home or self-care (01) ==
LOC: COL.ER 23:17
PROVIDERS: Emergency Medicine
DX: K02.9 Dental caries, unspecified (principal); F17.210 Nicotine dependence, cigarettes, uncomplicated

== ENCOUNTER 2024-03-18 03:42 | Emergency (ER) | payer MEDICAID ==
[~2024-03-18] VITALS: Ht 188 cm; Wt 90.9 kg
[2024-03-18 03:55] VITALS: TEMP 98.3
[2024-03-18] MEDS ORDERED: Ondansetron 4 MG/2 ML VIAL IV ONE (04:30)
[2024-03-18] MEDS ORDERED: LORazepam 2 MG/ML 1 ML VIAL IV ONE (04:30)
[2024-03-18] MEDS ORDERED: Ketorolac 30 MG/ML VIAL IV ONE (04:30)
[2024-03-18] MEDS ORDERED: NS 1,000 ML IV ONE (04:30)
[2024-03-18 04:31] LABS: COLLECTION METHOD CLEAN CATCH
[2024-03-18 04:36] LABS: HEMATOCRIT 49.2 % (42.0-52.0); HEMOGLOBIN 16.8 g/dl (13.5-18.0); MEAN CELL VOLUME 92 fl (80.0-100.0); MEAN CORPUSCULAR HEMOGLOBIN 32 pg (27-31); MEAN CORPUSCULAR HGB CONC 34 g/dl (33.0-37.0); MEAN PLATELET VOLUME 8.9 fl (7.4-10.4); PLATELET COUNT 300 K/mm3 (130-400); RED BLOOD COUNT 5.34 M/mm3 (4.20-5.60); REDCELL DISTRIBUTION WIDTH-CV 12.9 % (11.5-14.5)
[2024-03-18 04:43] LABS: PH 5.5 (5.0-8.5); URINE APPEARANCE CLEAR (CLEAR/HAZY); URINE BLOOD 2+ (NEGATIVE); URINE COLOR YELLOW (YELLOW); URINE GLUCOSE NEGATIVE (NEGATIVE); URINE KETONE NEGATIVE (NEGATIVE); URINE NITRATE NEGATIVE (NEGATIVE); URINE PROTEIN(semi-quant) NEGATIVE (NEGATIVE); URINE UROBILINOGEN 0.2 E.U/dL (0.2-1.0)
[2024-03-18 04:49] LABS: ALBUMIN 4.1 g/dL (3.5-5.0); BILIRUBIN,TOTAL 0.5 mg/dL (0.2-1.2); CALCIUM 9.1 mg/dL (8.4-10.2); CREATININE, serum 1.01 mg/dL (0.72-1.25); POTASSIUM 3.8 mEq/L (3.5-4.5); TOTAL PROTEIN 7.2 g/dl (6.2-8.1)
[2024-03-18] MEDS ORDERED: Morphine 4 MG/ML VIAL IV ONE (04:50)
[2024-03-18 05:08] LABS: BAND 1 % (0-10); LYMPHOCYTE 2 % (20.0-51.0); NEUTROPHILS 93 % (42.0-75.2)
[2024-03-18 05:09] LABS: PLATELET ESTIMATE NORMAL (NORMAL)
[2024-03-18] MEDS ORDERED: FLOMAX 0.40.4 MG/CAP PO (06:32)
[2024-03-18] MEDS ORDERED: TORADOL 10MG TA10 MG PO (06:32)
[2024-03-18] MEDS ORDERED: ZOFRAN ODT4 MG PO (06:32)
[2024-03-18 06:39] VITALS: BP 107/63; PULSE 93
[2024-03-18 06:39] LABS: TRICYCLIC ANTIDEPRESS URINE NEGATIVE (NEGATIVE)
== END 2024-03-18 06:50 | disposition home or self-care (01) ==
LOC: COL.ER 03:42
PROVIDERS: Emergency Medicine
DX: N20.0 Calculus of kidney (principal); F17.210 Nicotine dependence, cigarettes, uncomplicated
CPT/HCPCS: J0780; J1885; J2270; J2405; J7030

== ENCOUNTER 2024-04-20 20:37 | Emergency (ER) | payer MEDICAID ==
[~2024-04-20] VITALS: Ht 188 cm; Wt 90.9 kg
[~2024-04-20 20:37] MED LIST changes: +TORADOL 10MG TA10 MG PO
[2024-04-20 20:44] VITALS: TEMP 98.2
[2024-04-20] MEDS ORDERED: Ketorolac 15 MG/ML VIAL IV ONE (21:15)
[2024-04-20 21:20] LABS: BASO # 0.1 K/mm3 (0.0-0.2); BASO % 1.1 % (0.0-2.0); EOS # 0.3 K/mm3 (0.0-0.7); EOS % 3.7 % (0.0-4.0); GRAN # 5.2 K/mm3 (1.4-6.5); GRAN % 62.6 % (42.2-75.2); HEMATOCRIT 48.7 % (42.0-52.0); HEMOGLOBIN 16.8 g/dl (13.5-18.0); LYMPH # 1.9 K/mm3 (1.2-3.4); LYMPH % 22.9 % (20.0-51.0); MEAN CELL VOLUME 93 fl (80.0-100.0); MEAN CORPUSCULAR HEMOGLOBIN 32 pg (27-31); MEAN CORPUSCULAR HGB CONC 35 g/dl (33.0-37.0); MEAN PLATELET VOLUME 9.2 fl (7.4-10.4); MONO # 0.8 K/mm3 (0.1-0.6); MONO % 9.2 % (1.7-9.3); PLATELET COUNT 309 K/mm3 (130-400); RED BLOOD COUNT 5.25 M/mm3 (4.20-5.60); REDCELL DISTRIBUTION WIDTH-CV 12.7 % (11.5-14.5)
[2024-04-20 21:43] LABS: ALANINE AMINOTRANSFERASE 40 U/L (0-55); ALBUMIN 4.5 g/dL (3.5-5.0); ALKALINE PHOSPHATASE 103 U/L (40-150); ANION GAP 12 mmol/L (7-16); AST,SGOT 21 U/L (5-34); BILIRUBIN,TOTAL 0.2 mg/dL (0.2-1.2); BLOOD UREA NITROGEN 18 mg/dL (9-21); CALCIUM 9.9 mg/dL (8.4-10.2); CHLORIDE 105 mEq/L (98-107); CREATININE, serum 1.06 mg/dL (0.72-1.25); GLUCOSE 91 mg/dL (70-99); MAGNESIUM 2.2 mg/dL (1.6-2.6); POTASSIUM 3.9 mEq/L (3.5-4.5); SODIUM 142 mEq/L (136-145); TOTAL PROTEIN 7.7 g/dl (6.2-8.1)
[2024-04-20 21:51] LABS: TROPONIN-I < 0.010 ng/mL (0.00-0.033)
[2024-04-20 22:40] VITALS: BP 126/89; PULSE 82
== END 2024-04-20 22:40 | disposition home or self-care (01) ==
LOC: COL.ER 20:37
PROVIDERS: Emergency Medicine
DX: R07.9 Chest pain, unspecified (principal); F17.200 Nicotine dependence, unspecified, uncomplicated
CPT/HCPCS: J1885